=== PATIENT | female | born 1995 | race Two or more races ===

== ENCOUNTER 2023-03-19 15:24 | Emergency (ER) | payer BC, OTHER ==
[2023-03-19 15:44] VITALS: BP 114/70; PULSE 96; RESP 18; TEMP 98.2; BMI 29.2
[2023-03-19 16:55] LABS: EOS % 0.9 % (0-4.5); HEMATOCRIT 40.3 % (32.4-45.2); HEMOGLOBIN 13.3 GM/dL (10.7-15.3); LYMPH % 31.4 % (8-40); MCH 30.2 pg (25.7-33.7); MCHC 32.9 g/dl (32.0-36.0); MEAN CELL VOLUME 91.6 fl (80-96); MONO % 9.4 % (3.8-10.2); NEUT % 57.3 % (42.8-82.8); PLATELET COUNT 226 10^3/uL (134-434); RDW 14.4 % (11.6-15.6); WHITE BLOOD COUNT 6.2 K/mm3 (4.0-10.0)
[2023-03-19 17:13] LABS: INR 1.06 (0.83-1.09); PROTHROMBIN TIME (PATIENT) 12.3 SEC (9.7-13.0)
[2023-03-19 17:15] LABS: ACTIVATED PTT 34.8 SECONDS (25.2-36.5)
[2023-03-19 17:24] LABS: POTASSIUM 4.2 mmol/L (3.5-5.1)
[2023-03-19 17:26] LABS: ALBUMIN 3.6 g/dl (3.4-5.0)
[2023-03-19 17:30] LABS: CREATININE 0.8 mg/dL (0.55-1.3)
[2023-03-19 17:31] LABS: BILIRUBIN,TOTAL 0.4 mg/dL (0.2-1); TOT PROT 6.8 g/dl (6.4-8.2)
[2023-03-19 17:36] LABS: BLOOD UREA NITROGEN 6.5 mg/dL (7-18); CALCIUM 8.3 mg/dL (8.5-10.1)
== END 2023-03-19 18:00 | disposition home or self-care (01) ==
LOC: JER 15:24
DX: R07.89 Other chest pain (principal); M94.0 Chondrocostal junction syndrome [Tietze]; Z20.822 Contact with and (suspected) exposure to COVID-19
CPT/HCPCS: 0241U-QW; 36415; 71046-TC-FY; 80053; 84484; 84703; 85025; 85610; 85730; 93005; 93010; 99285-25

== ENCOUNTER 2023-07-01 21:54 | Emergency (ER) | payer BC, OTHER ==
[2023-07-01 22:01] VITALS: BP 128/72; PULSE 99; RESP 18; TEMP 98.2; BMI 28.3
[2023-07-02 00:17] LABS: SYPHILIS W/ RPR CONF NON-REACTIVE (NONREACTIVE)
[2023-07-02 00:52] LABS: HIV INTERPRETATION NEGATIVE (NEGATIVE)
== END 2023-07-02 01:44 | disposition home or self-care (01) ==
LOC: JER 21:54
DX: Z11.3 Encounter for screening for infections with a predominantly sexual mode of transmission (principal)
CPT/HCPCS: 36415; 84703; 86705; 86780; 86803; 87340; 87389; 87491; 87517; 87591; 87661; 99283-25